=== PATIENT | female | born 1930 | race Two or more races ===

== ENCOUNTER → 2017-10-18 | Emergency (ER) | payer OTHER ==
[~2017-10-18] VITALS: Ht 162.6 cm; Wt 45.4 kg
[~2017-10-18] MED LIST: AMBIEN5 MG; AMLODIPINE BESY10 MG PO; AMOX1TAB12 PO; CLONAZEPAM1 MG PO; CLOPIDOGREL BIS75 MG PO; COZAAR100 MG; COZAAR100 MG PO; DOCUSATE SODIU100 MG PO; GABAPENTIN800 MG PO; HYDRALAZINE HCL25 MG PO; LEVOTHYROXINE88 MCG PO; NEURONTIN300 MG; NEURONTIN300 MG PO; NORVASC10 MG; PERCOCET 5-3251 EACH PO; PLAVIX75 MG; SIMVASTATIN10 MG; SYNTHROID88 MCG
== END | disposition home or self-care (01) ==
LOC: ER 11:08
DX: M51.16 Intervertebral disc disorders with radiculopathy, lumbar region (principal)

== ENCOUNTER 2017-11-12 13:24 | Inpatient (IN) | payer OTHER ==
[~2017-11-12] VITALS: Ht 152.4 cm; Wt 41.7 kg
[2017-11-30] MEDS ORDERED: SIMVASTATIN10 MG PO (11:50)
[2017-11-30] MEDS ORDERED: NEURONTIN300 MG PO (11:50)
[2017-11-30] MEDS ORDERED: CARdura 4MG TABLET PO (11:50)
[2017-11-30] MEDS ORDERED: HYDRALAZINE HCL25 MG PO (11:50)
[2017-11-30] MEDS ORDERED: LOSARTAN-HCTZ1 EAC2 PO (11:50)
[2017-11-30] MEDS ORDERED: AMITRIPTYLINE H10 MG PO (11:50)
[2017-11-30] MEDS ORDERED: CLOPIDOGREL BIS75 MG PO (11:50)
[2017-11-30] MEDS ORDERED: ZANTAC150 MG PO (11:50)
[2017-11-30] MEDS ORDERED: AMLODIPINE BESY10 MG PO (11:50)
[2017-11-30] MEDS ORDERED: LEVOTHYROXINE88 MCG PO (11:50)
[2017-11-30] MEDS ORDERED: PERCOCET 5-3251 EACH PO (12:02)
== END 2017-11-30 13:30 | disposition home health service (06) | DRG 478 ==
LOC: ER 13:24 → MEDI 23:40
PROC: BR39YZZ Magnetic Resonance Imaging (MRI) of Lumbar Spine using Other Contrast (ICD-10-PCS; 2017-11-15)
PROC: 30233N1 Transfusion of Nonautologous Red Blood Cells into Peripheral Vein, Percutaneous Approach (ICD-10-PCS; 2017-11-18)
PROC: 0QB03ZX Excision of Lumbar Vertebra, Percutaneous Approach, Diagnostic (ICD-10-PCS; principal; 2017-11-22)
PROC: 02HV33Z Insertion of Infusion Device into Superior Vena Cava, Percutaneous Approach (ICD-10-PCS; 2017-11-29)
DX: M46.26 Osteomyelitis of vertebra, lumbar region (principal); T81.4XXA Infection following a procedure, initial encounter; M51.16 Intervertebral disc disorders with radiculopathy, lumbar region; Z98.1 Arthrodesis status; I10 Essential (primary) hypertension; E03.8 Other specified hypothyroidism; M48.061 Spinal stenosis, lumbar region without neurogenic claudication; D64.89 Other specified anemias; J44.9 Chronic obstructive pulmonary disease, unspecified; Y83.8 Other surgical procedures as the cause of abnormal reaction of the patient, or of later complication, without mention of misadventure at the time of the procedure; Y92.098 Other place in other non-institutional residence as the place of occurrence of the external cause
CPT/HCPCS: 72149